=== PATIENT | male | born 1980 | race Caucasian/White ===

== ENCOUNTER 2024-02-19 20:22 | Emergency (ER) | payer OTHER, SELFPAY ==
--- NOTE | ~2024-02-19 | XR_ITS ---
EXAMINATION: XR hand LT min 3V DATE: 02/19/2024 20:38 INDICATION: Left thumb pain. Injury. TECHNIQUE: 3 views of left hand were obtained. COMPARISON: None. FINDINGS: There is a comminuted fracture of the ulnar-sided base of first proximal phalanx. The main fracture fragments demonstrate near-anatomic alignment. A small chip fracture fragment demonstrates 4 mm distraction. Joint spaces are normal. IMPRESSION: 1. Comminuted fracture of the ulnar-sided base of first proximal phalanx. Reviewed, dictated and finalized at location E.
[2024-02-19 20:27] VITALS: BP 119/88; PULSE 102; RESP 18; TEMP 36.3; O2SAT 98
--- NOTE | 2024-02-19 21:03 | ED.UPPEXIN ---
HPI - Extremity Injury (Upper) General Chief Complaint: Extremity Injury, Upper Stated Complaint: hand injury Time Seen by Provider: 02/19/24 20:32 Source: patient Mode of arrival: ambulatory Limitations: no limitations History of Present Illness HPI narrative: This is a 43-year-old male that presents to the emergency department after a left hand injury. Reports he was playing soccer and fell onto his left hand. Reports pain, largely in his thumb. Reports decreased range of motion due to pain. Denies numbness. Related Data Allergies Allergy/AdvReac Type Severity Reaction Status Date / Time No Known Allergies Allergy Verified 02/19/24 20:31 Review of Systems Review of Systems: CONSTITUTIONAL: Denies fever MUSCULOSKELETAL: Reports joint pain, and myalgia. NEUROLOGIC: Denies numbness, or weakness. All systems reviewed & are unremarkable except as noted in HPI and below PMFSH Past Medical History Medical History (Updated 02/19/24 @ 21:10 by Lucero Garnett PA-C) No active medical problems Social History Social History (Updated 02/19/24 @ 21:10 by Lucero Garnett PA-C) Substance use: never Exam Narrative: GENERAL: Well-appearing, well-nourished, and in no acute distress. HEAD: Normocephalic, atraumatic. EYES: EOMI. EXTREMITIES: Normal range of motion, except decreased active ROM in the left 1st finger due to pain. No obvious deformity. Normal radial pulse. Normal sensation SKIN: Warm, dry, no rash. NEURO: No focal deficits. Alert and oriented x3. PSYCH: Normal mood and affect Course Course Emergency Course: Patient updated on his workup and agrees with plan of care Vital Signs Vital signs: Vital Signs Temperature 97.3 F L 02/19/24 20:27 Pulse Rate 102 H 02/19/24 20:27 Respiratory Rate 18 02/19/24 20:27 Blood Pressure 119/88 02/19/24 20:27 Pulse Oximetry 98 02/19/24 20:27 Oxygen Delivery Room Air 02/19/24 20:27 Temperature 97.3 F L 02/19/24 20:27 Pulse Rate 102 H 02/19/24 20:27 Respiratory Rate 18 02/19/24 20:27 Blood Pressure 119/88 02/19/24 20:27 Pulse Oximetry 98 02/19/24 20:27 Oxygen Delivery Room Air 02/19/24 20:27 Procedures Orthopedic Splinting/Casting Injury #1: Splinting/Casting Date: 02/19/24 Side: left Upper Extremity Injury Location: hand Upper Extremity Immobilizer: thumb spica Splint: customized in ED OCL: thumb spica Pre-Procedure Neuro Vascular Exam: normal Post-Procedure Neuro Vascular Exam: normal MDM - Extremity Injury (Upper) MDM Narrative Medical decision making narrative: Patient presents to the emergency department after a fall today with left 1st finger injury. He is neurovascularly intact. Left hand x-ray shows a comminuted fracture of the ulnar sided base of the 1st proximal phalanx. Patient placed in a splint and will be given follow-up with a hand surgery. He was given warnings to return to the ER Differential Diagnosis Differential diagnosis: Likely fracture of hand and other (Finger fracture) Imaging Data Radiologist's impression: ITS Impressions Hand X-Ray 02/19/24 20:43 IMPRESSION: 1. Comminuted fracture of the ulnar-sided base of first proximal phalanx. Critical Care Time Critical Care Time Critical Care Time: No Discharge Plan Discharge Clinical Impression: Finger fracture, left Qualifiers: Encounter type: initial encounter Finger: thumb Fracture type: closed Phalanx: proximal Fracture alignment: nondisplaced Qualified Code(s): S62.515A - Nondisplaced fracture of proximal phalanx of left thumb, initial encounter for closed fracture Patient Disposition: Home, Self-Care Condition: Stable Instructions: Finger Fracture (ED) Additional Instructions: Return to the ER if you experience fever, redness and swelling of your hand, numbness, or any other symptoms that are concerning to you Rest, use ice, take anti-inflamm
== END 2024-02-19 21:23 | disposition home or self-care (01) ==
PROVIDERS: Emergency Provider Physician Assistant
DX: S62.515A Nondisplaced fracture of proximal phalanx of left thumb, initial encounter for closed fracture (principal); W18.30XA Fall on same level, unspecified, initial encounter
CPT/HCPCS: 29125; 73130; 99284

== ENCOUNTER 2024-03-13 15:07 | Outpatient (CLI) | payer OTHER, SELFPAY ==
--- NOTE | ~2024-03-13 | XR_ITS ---
XR finger 1st LT min 2V DATE: 03/13/2024 15:23 INDICATION: Removal of splint TECHNIQUE: 3 views of the left first digit COMPARISON: February 19, 2024 left hand FINDINGS: No significant change in position or alignment at a corner intra-articular fracture at the ulnar base of the proximal phalanx of the first digit. There is some sclerosis at the apposing articu lar margins suggesting nonunion. IMPRESSION: Ununited intra-articular corner fracture of the medial base of the proximal phalanx Reviewed, dictated and finalized at location B.
== END 2024-03-13 15:08 | disposition home or self-care (01) ==
LOC: ANHIMG 15:11
PROVIDERS: Visit Provider Plastic Surgery
DX: S62.512A Displaced fracture of proximal phalanx of left thumb, initial encounter for closed fracture (principal)
CPT/HCPCS: 73140